=== PATIENT | male | born 1975 | race Caucasian/White ===

== ENCOUNTER 2022-01-23 10:09 | Outpatient (REF) | payer OTHER, SELFPAY ==
[2022-01-23 10:23] LABS: MANUAL DIFF FLAG NO
[2022-01-23 11:32] LABS: Basophils Percent Auto 0.4 % (0-2); Eosinophils Absolute Auto 0.2 X10*3/uL (0.0-0.4); Eosinophils Percent Auto 2.1 % (0-4); Hemoglobin 16.8 g/dl (14.0-18.0); Imm Gran Abs Auto 0.04 X10*3/uL (0.00-0.03); Imm Gran Pct Auto 0.4 % (0.0-0.4); Lymphocytes Absolute Auto 3.1 X10*3/uL (1.2-4.9); Lymphocytes Percent Auto 32.5 % (20-40); Mean Corpuscular HGB Conc 33.6 g/dl (31.0-36.0); Mean Corpuscular Hemoglobin 29.9 pg (27.0-33.0); Mean Platelet Volume 9.8 fL (9.4-12.4); Monocytes Absolute Auto 0.7 X10*3/uL (0.1-1.2); Neutrophils Absolute Auto 5.5 x10*3/uL (2.0-8.3); Neutrophils Percent Auto 57.6 % (45-73); Platelet Count 311 X10*3/uL (160-400); Red Blood Count 5.62 X10*6/uL (4.60-5.80); Red Cell Distribution Width 12.6 % (11.0-16.0); White Blood Count 9.6 X10*3/uL (4.8-10.8)
[2022-01-23 11:41] LABS: Estimated Average Glucose 114 mg/dL; Hemoglobin A1c % 5.6 %
[2022-01-23 11:57] LABS: Cholesterol 181 mg/dL; Glucose Fasting 99 mg/dL (60-99); HDL Cholesterol 41 mg/dL; LDL Cholesterol Calculated 123 mg/dl; Triglycerides 89 mg/dL
== END 2022-01-23 10:10 | disposition home or self-care (01) ==
LOC: HO.LAB 10:09
PROVIDERS: Visit Provider Family Medicine
DX: G47.33 Obstructive sleep apnea (adult) (pediatric) (principal); E78.00 Pure hypercholesterolemia, unspecified
CPT/HCPCS: 36415; 80061; 82947; 83036; 85025

== ENCOUNTER 2022-08-21 13:09 | Outpatient (REF) | payer OTHER, SELFPAY ==
[2022-08-21 15:19] LABS: MANUAL DIFF FLAG NO
[2022-08-21 15:24] LABS: Basophils Percent Auto 0.4 % (0-2); Eosinophils Absolute Auto 0.2 X10*3/uL (0.0-0.4); Eosinophils Percent Auto 2.2 % (0-4); Hematocrit 45.9 % (42.0-52.0); Hemoglobin 15.7 g/dl (14.0-18.0); Imm Gran Abs Auto 0.04 X10*3/uL (0.00-0.03); Imm Gran Pct Auto 0.5 % (0.0-0.4); Lymphocytes Absolute Auto 2.7 X10*3/uL (1.2-4.9); Lymphocytes Percent Auto 33.5 % (20-40); Mean Corpuscular HGB Conc 34.2 g/dl (31.0-36.0); Mean Corpuscular Hemoglobin 30.5 pg (27.0-33.0); Mean Corpuscular Volume 89.1 fL (80.0-98.0); Mean Platelet Volume 10.2 fL (9.4-12.4); Monocytes Absolute Auto 0.5 X10*3/uL (0.1-1.2); Monocytes Percent Auto 6.1 % (2-11); Neutrophils Absolute Auto 4.7 x10*3/uL (2.0-8.3); Neutrophils Percent Auto 57.3 % (45-73); Platelet Count 270 X10*3/uL (160-400); Red Blood Count 5.15 X10*6/uL (4.60-5.80); Red Cell Distribution Width 12.6 % (11.0-16.0); White Blood Count 8.2 X10*3/uL (4.8-10.8)
[2022-08-21 15:34] LABS: Anion Gap 15 (12-20); Blood Urea Nitrogen 15 mg/dL (9-16); Carbon Dioxide 24 mmol/L (22-29); Chloride 107 mmol/L (96-108); Estimated Glomerular Filt Rate > 60; Potassium 4.4 mmol/L (3.3-5.1); Sodium 142 mmol/L (135-145)
== END 2022-08-21 13:10 | disposition home or self-care (01) ==
LOC: HO.HMGCLDS 13:09
PROVIDERS: PCP Family Medicine; Visit Provider Family Medicine
DX: I10 Essential (primary) hypertension (principal); D45 Polycythemia vera
CPT/HCPCS: 36415; 80051; 82565; 84520; 85025

== ENCOUNTER 2022-11-05 14:54 | Outpatient (AMB) | payer OTHER, SELFPAY ==
--- NOTE | 2022-11-05 14:56 | MHC.OFFVIS ---
Intake Vital Signs 11/05/22 14:58 Height 6 ft 2 in Weight 337 lb BMI 43.3 BP 116/82 Blood Pressure Location Rt brachial Position Sitting Pulse 71 Pulse Source Pulse Oximeter Pulse Oximetry (%) 96 Intake Visit Reasons: NPV- EMILY Intake Note: Patient presents for evaluation for EMILY Allergies No Known Allergies Allergy (Verified 11/05/22 15:01) Medication List - Last Reconciled 11/05/22 by Rodrick Barnhart CNP bupropion HCl 150 mg PO QAM lisinopril 10 mg PO DAILY metoprolol succinate ER 50 mg PO DAILY HPI HPI Comments History of Present Illness Details 47 y/o male patient with hx of sleep apnea and HTN presents for new in-person visit to manage sleep apnea. Pt reports that he was diagnosed with EMILY about 20 years ago. He tried CPAP couple of months but he could not sleep with the mask. Pt states that he gained more than 50 lb since the last sleep study. His girl friend witnessed apnea spells more lately. He reports snoring, non refreshing sleep and daytime sleepiness. Pt is in wt management program now. Sleep questionnaire: Have you ever been diagnosed with a sleep disorder? Yes, EMILY about 20 years ago. Have you ever had a sleep study in the past? Yes. Have you ever been treated for a sleep disorder? Yes, CPAP for couple of months. Do you take medications for a sleep disorder? No. Do you snore? Yes. Do you wake up gasping at night? Yes. Do you have episodes of apneas? Yes. If yes, are they witnessed? Yes, by his girlfriend. Do you have episodes of nocturnal chest pain or dyspnea? Yes. Do you have difficulty initiating sleep? No. Do you have difficulty maintaining sleep? Yes. Do you wake up tired? Yes. Do you have headaches upon awakening? No, but having headache during the day. Do you wake up with dry mouth or throat? Yes. Do you have GERD? No. Do you have nocturia? Yes. Do you have nocturnal leg cramps? Yes, sometimes. Do you have symptoms of restless legs? Yes. Do you act out your dreams? No. Sleep hygiene questionnaire: What is your usual sleep routine? Usual bedtime is at 11 pm to 12 am; Usual wake up time is at 6:30 am. Do you take naps? No. Is your sleep environment cool, dark, and quiet? Yes. Do you exercise? No. Do you take caffeine or other stimulants? Large cup of coffee in the morning. Do you use electronics in bed? Yes. What is your work schedule? 9 am to 5 pm. Hypersomnolence questionnaire: Do you have daytime tiredness or fatigue? Yes. Do you easily fall asleep when inactive? Yes. Have you ever had episodes of sudden weakness? No. Have you ever had episodes of sudden weakness associated with strong emotions? No. PFSH Family History (Updated 11/05/22 @ 15:04 by YAS Garay) Father HTN (hypertension) Obesity Mother Breast cancer Brother Fatty liver Social History (Updated 11/05/22 @ 15:04 by YAS Garay) Alcohol intake: current Patient Tobacco Use Status: Never used Tobacco Questionnaire Tow[place] Sleepiness Scale Questions Sitting and reading: slight chance of dozing Watching TV: moderate chance of dozing Sitting inactive in a theater, movie etc.: slight chance of dozing As a passenger in a car for an hour without break: slight chance of dozing Lying down in the afternoon when circumstances permit: high chance of dozing Sitting and talking to someone: would never doze Sitting quietly after lunch without alcohol: moderate chance of dozing In a car, while stopped for a few minutes in the traffic: would never doze ESS < 10: normal, ESS > 12: pathologic: 10 Review of Systems ENT Reports Normal hearing present Neuro Reports Normal hearing present Physical Exam Vital Signs: Last Vital Signs Pulse 71 11/05/22 14:58 BP 116/82 11/05/22 14:58 Pulse Ox 96 11/05/22 14:58 BMI result Body Mass Index 43.3 Const General: cooperative Nutritional Appearance: obese Orientation/consciousness: patient oriented x3 HEENT Throat: Yes other (mallampati grade 3) Neck Neck: Yes full ROM and Yes supple Resp Effort & Inspection: normal respiratory effort and able to speak in complete sentences Neuro General: patient oriented x3 and gait normal Cranial nerves: Yes Bilaterally intact EOM present, Yes Normal facial strength present, Yes Midline tongue present, Yes Symmetric palate elevation present, Yes Normal hearing present, Yes Ability to bilaterally rotate head present and Yes Ability to bilaterally elevate shoulders present Cognition (Neuro): normal cognition Gait exam (Neuro): Normal gait present Psych Appearance: grossly normal Mental Status: mental status grossly normal Speech and movement: Normal speech and movement present Affect: normal affect Attitude: cooperative Assessment & Plan Assessment & Plan (1) Obesity, morbid, BMI 40.0-49.9: Code(s): E66.01 - Morbid (severe) obesity due to excess calories (2) Restless legs syndrome: Code(s): G25.81 - Restless legs syndrome (3) EMILY (obstructive sleep apnea): Code(s): G47.33 - Obstructive sleep apnea (adult) (pediatric) (4) Daytime sleepiness: Code(s): R40.0 - Somnolence (5) Snoring: Code(s): R06.83 - Snoring Plan Pt is advised to undergo in lab sleep study to assess for sleep apnea. Will f/u with pt after study to discuss results and appropriate treatment options. Sleep hygiene education provided. Wt reduction advised. Pt to call with any worsening concerns or questions. Orders: Orders RT PSG in-lab sleep study Today E66.01 - Morbid (severe) obesity due to excess calories, G25.81 - Restless legs syndrome, G47.33 - Obstructive sleep apnea (adult) (pediatric), R06.83 - Snoring, R40.0 - Somnolence Coding Level of Care Code New Pt Level 4 (46360) Diagnoses Obesity, morbid, BMI 40.0-49.9 E66.01 Restless legs syndrome G25.81 EMILY (obstructive sleep apnea) G47.33 Daytime sleepiness R40.0 Snoring R06.83
[2022-11-05 14:58] VITALS: BP 116/82; PULSE 71; O2SAT 96; BMI 43.3
== END 2022-11-05 15:32 | disposition home or self-care (01) ==
PROVIDERS: Visit Provider Nurse Practitioner Family
DX: E66.01 Morbid (severe) obesity due to excess calories (principal); G25.81 Restless legs syndrome; G47.33 Obstructive sleep apnea (adult) (pediatric); R40.0 Somnolence; R06.83 Snoring
CPT/HCPCS: 99204

== ENCOUNTER → 2022-11-05 14:54 | Outpatient (BNVA) | payer OTHER, SELFPAY | PROVIDERS: Visit Provider Nurse Practitioner Family ==

== ENCOUNTER → 2022-12-29 13:59 | Outpatient (REF) | payer OTHER, SELFPAY | LOC: HO.SL 13:59 | PROVIDERS: PCP Family Medicine; Visit Provider Nurse Practitioner Family | DX: G47.33 Obstructive sleep apnea (adult) (pediatric) (principal); R40.0 Somnolence; G25.81 Restless legs syndrome; E66.01 Morbid (severe) obesity due to excess calories | CPT/HCPCS: 95806 ==

== ENCOUNTER → 2022-12-29 14:13 | Outpatient (BNV) | payer OTHER, SELFPAY | PROVIDERS: PCP Family Medicine; Visit Provider Psychiatry & Neurology Neurology | DX: G47.33 Obstructive sleep apnea (adult) (pediatric) (principal) | CPT/HCPCS: 95806 ==

== ENCOUNTER 2023-01-21 08:52 | Day surgery (SDC) | payer OTHER, SELFPAY ==
[2023-01-21 09:51] VITALS: BP 134/57; PULSE 77; RESP 16; TEMP 36.1; O2SAT 97; BMI 41.7
--- NOTE | 2023-01-21 09:53 | HO.ANESPROP2 ---
[facility] Active Problems Active Problems: All Active Problems (Updated 01/20/23 @ 10:07 by Eva Shelton) Obesity, morbid, BMI 40.0-49.9 (Acute) Restless legs syndrome (Acute) EMILY (obstructive sleep apnea) (Acute) Daytime sleepiness (Acute) Snoring (Acute) Past Medical History Medical History Nephrolithiasis Anxiety HTN (hypertension) Family History Family History Father HTN (hypertension) Obesity Mother Breast cancer Brother Fatty liver Surgical History Surgical History History of vein stripping History of Problems with Anesthesia: No Social History Social History Alcohol intake: current Patient Tobacco Use Status: Never used Tobacco Advance Directives: No Advance Directives Information Provided: Yes Meds Allergies Allergy/AdvReac Type Severity Reaction Status Date / Time No Known Allergies Allergy Verified 11/05/22 15:01 Home Medications Medication Instructions Recorded Confirmed Last Taken Type bupropion HCl 150 mg 24 hr tablet, 150 mg PO QAM 11/05/22 11/05/22 Unknown History extended release lisinopril 10 mg tablet 10 mg PO DAILY 11/05/22 11/05/22 Unknown History metoprolol succinate 50 mg 50 mg PO DAILY 11/05/22 11/05/22 Unknown History tablet,extended release 24 hr Exam Exam Date and Time: January 21, 2023 0953 Height,Weight and Vital Signs: Height 6 ft 2 in Weight 147.418 kg Last Vital Signs Temp 97 F 01/21/23 09:51 Pulse 77 01/21/23 09:51 Resp 16 01/21/23 09:51 BP 134/57 L 01/21/23 09:51 Pulse Ox 97 01/21/23 09:51 O2 Del Method Room Air 01/21/23 09:51 Airway Mallampati Class: III (full ramos) Neck ROM: Full Loose/Missing/Broken Teeth: No Heart: RRR Lungs: CTA Assessment and Plan Assessment Anesthesia Assessment: Anesthesia Plan Discussed and Chart Reviewed Final Anesthetic Review History of Problems with Anesthesia: No NPO: Yes ASA Class: III Final Preanesthetic Review: Meds/Allgs Chart Reviewed, Consent Obtained/Reviewed and Anes Risks/Benef Reviewed Patient Risk: Intermediate Procedure Risk: Low Anesthetic Plan Anesthetic Plan: MAC: Disposition: Standard PACU
--- NOTE | 2023-01-21 11:01 | PM.OP ---
Brief Operative Note Date of Service: 01/21/23 Pre-op diagnosis: see H&P alireza foster Post-op diagnosis: same Procedure: colonsocoyp Surgeon: Forrest Jose MD Anesthesia: MAC Was an Data Analytics Developer used for this Procedure?: No Estimated blood loss (mL): 2 Pathology: other Condition: stable Disposition: PACU
[2023-01-21 11:03] VITALS: BP 127/90; PULSE 87; RESP 18; TEMP 36.6; O2SAT 96
[2023-01-21 11:18] VITALS: BP 110/72; PULSE 84; RESP 18; TEMP 36.4; O2SAT 96
--- NOTE | 2023-01-21 12:40 | OP_ITS ---
DATE OF SERVICE: 01/21/2023 SURGEON: Forrest Jose MD INDICATIONS: Colon cancer screening. PREOPERATIVE DIAGNOSIS: POSTOPERATIVE DIAGNOSIS: PROCEDURE PERFORMED: Colonoscopy to the terminal ileum with biopsy. ESTIMATED BLOOD LOSS: COMPLICATIONS: ANESTHESIA: Monitored anesthesia care. ASSISTANTS: SPECIMENS: DESCRIPTION OF PROCEDURE: A history and physical was performed. The risks and benefits of the procedure were explained to the patient. Informed consent was obtained. The patient was placed in the left lateral decubitus position. A digital rectal exam was performed and was found to be normal. The Olympus pediatric video colonoscope was introduced into the rectum and advanced to the cecum. The cecum was identified by transillumination, palpation, and identification of ileocecal valve. Examination was performed. The scope was removed. He tolerated the procedure well and was returned to the recovery area in stable condition. FINDINGS: The terminal ileum was examined and appeared normal. The visualized colonic mucosa was normal. The quality of the prep was good. A single polyp measuring less than 5 mm was identified in the cecum and removed using a biopsy forceps. No other polyps were identified. The quality of the prep was good. There was mild sigmoid diverticulosis. Retroflexed examination showed small internal hemorrhoids. IMPRESSION: Colon polyp. RECOMMENDATION: Follow up the biopsy results. MD ANH Peters/JALEESAL / [id number]
== END 2023-01-21 11:48 | disposition home or self-care (01) ==
PROVIDERS: PCP Family Medicine; Visit Provider Internal Medicine Gastroenterology
PROC: 0DJD8ZZ Inspection of Lower Intestinal Tract, Via Natural or Artificial Opening Endoscopic (ICD-10-PCS; CPT 45378; principal; 2023-01-21 10:10)
DX: Z12.11 Encounter for screening for malignant neoplasm of colon (principal); D12.0 Benign neoplasm of cecum; K57.30 Diverticulosis of large intestine without perforation or abscess without bleeding; K64.8 Other hemorrhoids; K58.8 Other irritable bowel syndrome; R15.2 Fecal urgency; N20.0 Calculus of kidney; I10 Essential (primary) hypertension; G47.33 Obstructive sleep apnea (adult) (pediatric); F41.1 Generalized anxiety disorder; Z79.899 Other long term (current) drug therapy
CPT/HCPCS: 45380; 88305

== ENCOUNTER → 2023-02-02 15:18 | Outpatient (BNVA) | payer OTHER, SELFPAY | PROVIDERS: PCP Family Medicine; Visit Provider Physician Assistant Surgical ==

== ENCOUNTER 2023-03-22 09:47 | Outpatient (REF) | payer OTHER, SELFPAY ==
--- NOTE | ~2023-03-22 | XR_ITS ---
EXAMINATION: XR SHOULDER, RIGHT CLINICAL INFORMATION: Pain right shoulder COMPARISON: None available. TECHNIQUE: Two views of the right shoulder. FINDINGS: No acute visible fracture or dislocation. Subtle ossific density along the right greater tuberosity which may reflect an element of calcific tendinosis of the supraspinatus tendon. Joint spaces and alignment are otherwise maintained. Soft tissues are unremarkable. Visualized portions of the right chest are unremarkable. XR/XR shoulder RT min 2V IMPRESSION: 1. No acute visible fracture or dislocation. 2. Subtle ossific density along the right greater tuberosity which may reflect an element of calcific tendinosis of the supraspinatus tendon.
== END 2023-03-22 09:48 | disposition home or self-care (01) ==
LOC: HO.HOSX 09:47
PROVIDERS: Visit Provider Orthopaedic Surgery
DX: M25.511 Pain in right shoulder (principal)
CPT/HCPCS: 20610; 73030; J1020

== ENCOUNTER 2023-03-22 12:55 | Outpatient (AMB) | payer OTHER, SELFPAY ==
--- NOTE | 2023-03-22 13:07 | A.OFFVIS_ITS ---
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 Right worse than the left. He describes his right shoulder pain as achy in nature. His symptoms have been getting worse over the last few months in spite of continued non operative treatments. The patient states that he has been sleeping on his right side after beginning use of a CPAP machine at night. The patient denies any weakness. He has tried Tylenol and anti-inflammatory medicines which gave him minimal relief. Allergies No Known Allergies Allergy (Verified 03/22/23 13:10) Medication List - Last Reconciled 03/22/23 by Greg Junior MD bupropion HCl 150 mg PO QAM lisinopril 10 mg PO DAILY metoprolol succinate ER 50 mg PO DAILY [facility] Medical History Nephrolithiasis Anxiety HTN (hypertension) Surgical History History of vein stripping Family History Father HTN (hypertension) Obesity Mother Breast cancer Brother Fatty liver Social History (Updated 03/22/23 @ 13:10 by Alysha Brody CMA) Alcohol intake: current Patient Tobacco Use Status: Never used Tobacco Current occupational status: employed 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 Physical Exam Vital Signs: BMI result Body Mass Index 43.6 Const Other: Well-nourished well-developed very friendly male awake alert and oriented x3 in no acute distress Extrem Other: Bilateral upper extremity examination shows good capillary refill, no skin lesions noted, normal sensation light touch Right shoulder examination shows slightly decreased range of motion when compared to his left shoulder, 4+ out of 5 strength with supraspinatus testing, positive impingement signs, tenderness over his acromioclavicular joint, no instability Office Procedures Joint Injection/Drain Joint Injection/Drain Primary Site: right shoulder Prep: site was prepped using aseptic technique Injected: 40 mg of, DepoMedrol and 1% plain lidocaine Procedure: The patient tolerated the procedure well Coding - Large joint Procedure code (CPT) selection complete Results Reviewed Results Reviewed: X-rays of the patient's right shoulder taken today show severe acromioclavicular joint narrowing, a type 2 acromion, no acute bony abnormalities Assessment & Plan Assessment & Plan (1) Right shoulder pain: Code(s): M25.511 - Pain in right shoulder Plan Mr. Mesa presents with progressively worsening right shoulder pain due to impingement syndrome and acromioclavicular joint arthritis. I had a lengthy discussion with the patient regarding the treatment options. He wishes to hold off on surgery for as long as possible. I agree with this plan. The risks and benefits of a right shoulder cortisone injection were discussed at length with the patient. The patient wished to proceed. He tolerated the injection well. He will continue with his range of motion exercises to prevent stiffness. He will contact me prior to his follow-up appointment in 3 months should his symptoms worsen in any way. Feel free to call me at any time should questions regarding his orthopedic management arise. Thank you very much for asking me to see this very friendly gentleman. I spent 22 minutes in reviewing the patient's records and imaging studies, seeing the patient and documenting in the medical record. Orders: Orders XR shoulder RT min 2V Today M25.511 - Pain in right shoulder AMB Joint Injection/Aspiration Today M25.511 - Pain in right shoulder Coding Level of Care Code New Pt Level 2 (70935) Diagnoses Right shoulder pain M25.511 CPT Codes Coding - 41873 Large joint: 72648 - Large joint ([id number])
[2023-03-22 13:09] VITALS: BMI 43.6
== END 2023-03-22 13:41 | disposition home or self-care (01) ==
PROVIDERS: PCP Family Medicine; Visit Provider Orthopaedic Surgery
DX: M25.511 Pain in right shoulder (principal)
CPT/HCPCS: 20610; 99204

== ENCOUNTER 2023-03-22 13:44 | Outpatient (REF) | payer OTHER, SELFPAY ==
[2023-03-22 15:10] LABS: INTERNATIONAL NORM RATIO 0.9 (0.9-1.1); Prothrombin Time 11.3 SEC (11.1-13.3)
[2023-03-22 15:12] LABS: Partial Thromboplastin Time 34.1 SEC (26.0-36.4)
[2023-03-27 12:33] LABS: Von Willebrand Factor Antigen 125 % (50-217)
[2023-03-29 10:53] LABS: Factor VIII Activity 102 % normal (50-180)
== END 2023-03-22 13:45 | disposition home or self-care (01) ==
LOC: HO.LAB 13:44
PROVIDERS: PCP Family Medicine; Visit Provider Family Medicine
DX: D69.2 Other nonthrombocytopenic purpura (principal); Z84.89 Family history of other specified conditions
CPT/HCPCS: 36415; 83520; 85240; 85246; 85610; 85730

== ENCOUNTER 2023-04-25 09:33 | Outpatient (AMB) | payer OTHER, SELFPAY ==
--- NOTE | 2023-04-25 09:42 | A.OFFVIS_ITS ---
Intake Vital Signs 04/25/23 09:44 Height 6 ft 2 in Weight 340 lb BMI 43.6 BP 110/72 Blood Pressure Location Rt brachial Position Sitting Intake Visit Reasons: 4MONTH F/U EMILY - Conf Intake Note: Patient presents for 4 month follow up. Allergies No Known Allergies Allergy (Verified 04/25/23 13:01) HPI HPI Comments History of Present Illness Details 48 y/o male patient presents for follow up of sleep study. The home sleep study result was significant for a mild to moderate degree of sleep apnea. The AHI was 15/hr and oxygen jayde was 85%. Pt started APAP [id number]. The CPAP compliance and therapy response (01/25/23-04/24/23) reviewed. The usage days 88% and the average usage hours 5 hrs 30 min. The max pressure was 13.8 and the residual AHI was 4.3/hr. Pt reports he is having less snoring, rested and refreshing sleep with CPAP. However, his full face mask is leaking in the middle of night and it wakes him up. He plans to visit [facility] to change mask. He is also followed by managment. 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 Review of Systems Const All systems reviewed & are unremarkable except as noted in HPI and below ENT Reports Normal hearing present Neuro Reports Normal hearing present Physical Exam Vital Signs: Last Vital Signs BP 110/72 04/25/23 09:44 BMI result Body Mass Index 43.6 Const General: cooperative Nutritional Appearance: obese Orientation/consciousness: patient oriented x3 HEENT Throat: Yes other (mallampati grade 3) Neck Neck: Yes full ROM and Yes supple Resp Effort & Inspection: normal respiratory effort and able to speak in complete sentences Neuro General: patient oriented x3 and gait normal Cranial nerves: Yes Bilaterally intact EOM present, Yes Normal facial strength present, Yes Midline tongue present, Yes Symmetric palate elevation present, Yes Normal hearing present, Yes Ability to bilaterally rotate head present and Yes Ability to bilaterally elevate shoulders present Cognition (Neuro): normal cognition Gait exam (Neuro): Normal gait present Psych Appearance: grossly normal Mental Status: mental status grossly normal Speech and movement: Normal speech and movement present Affect: normal affect Attitude: cooperative Assessment & Plan Assessment & Plan (1) EMILY (obstructive sleep apnea): Comment: Mild to moderate degree of sleep apnea. The AHI was 15/hr and oxygen jayde was 85%. Code(s): G47.33 - Obstructive sleep apnea (adult) (pediatric) Plan Continue to use APAP at [id number] as patient experiences good clinical effects, less snoring and rested sleep, daytime tiredness has improved. Wt reduction advised. Coding Level of Care Code Est Pt Level 3 (93278) Diagnoses EMILY (obstructive sleep apnea) G47.33
[2023-04-25 09:44] VITALS: BP 110/72; BMI 43.6
== END 2023-04-25 09:58 | disposition home or self-care (01) ==
PROVIDERS: PCP Family Medicine; Visit Provider Nurse Practitioner Family
DX: G47.33 Obstructive sleep apnea (adult) (pediatric) (principal)
CPT/HCPCS: 99213

== ENCOUNTER → 2023-04-25 09:33 | Outpatient (BNVA) | payer OTHER, SELFPAY | PROVIDERS: PCP Family Medicine; Visit Provider Nurse Practitioner Family | DX: R06.83 Snoring (principal); R40.0 Somnolence; G47.33 Obstructive sleep apnea (adult) (pediatric); G25.81 Restless legs syndrome; E66.01 Morbid (severe) obesity due to excess calories ==

== ENCOUNTER 2023-04-25 12:38 | Outpatient (AMB) | payer OTHER, SELFPAY ==
--- NOTE | 2023-04-25 12:49 | MHC.OFFVISWM ---
Intake VS Expanded 04/25/23 13:02 BP 128/72 Blood Pressure Location Rt brachial Blood Pressure Position Sitting Pulse 79 Pulse Source Pulse Oximeter Temp 96.0 F L Temperature Source Tympanic Pulse Oximetry 92 Oxygen Delivery Method Room Air Height 6 ft 2.5 in Weight 320 lb 12.8 oz BMI 40.6 Body Fat % 37.2 Body Fat Mass 141.6 Fat Free Mass 201.6 Visceral Fat Rating 22.0 Body Water % 44.1 Body Water Mass 141.6 Muscle Mass/Score 191.8 Basal Metabolic Rate/Score 2,841 Neck Circumference 18.5 in Waist Circumference 4 ft Intake Visit Reasons: (OV) [employer] MWL BMI Allergies No Known Allergies Allergy (Verified 04/25/23 13:01) HPI HPI Comments History of Present Illness Details This is a 48 year old man who is here to start MWL program. His goal is to loose weight and eat more healthfully. He reports first being concerned about his weight all his life - since childhood. He has tried multiple methods of weight loss including NOOM - no without permanent results. He lives alone, has girlfriend and going trhough divorce previously.. He works 5 days per week 9- 5 pm. He wakes at: 7:15 am, bed at 11:30 pm Breakfast: 8:30 am - coffee 20 oz's either cream or milk. Skips breakfast each day Lunch: 12; 30 - to never if working. grilled chicken and rice with tikka masala or peanut sauce. Water or seltzer Dinner: home at 5:30- dinner at 7pm - 2 4 oz hamburgers with rolls and air fried potatoes. Vegetables daily x 1 month. Diet Iced tea/lemonade. Restaurant food once per week. PIzza. After dinner: sweet or salty. - normally 1 snack sometimes multiple Other snacks: none during the day Liquids: once per month soda, no fruitjuice or sweetened juice Alcohol intake: none, 1 beer once per week, tobacco: none, marijuana: none Exercise: none since 2021.no membership. Has treadmill and free weights. 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 He will be gvien access to HFL classes and watch all before appt with Danny. 1. Adequate sleep of 7-8 hours per night discussed, 6 hour with CPAP 2. Healthy meal plan - stop skipping meals All meals/MR's need to take 20 minutes to complete 8am - protein shake with 16 oz coffee 12 pm - protein shake RTD - while working 4 pm- bar or yogurt 7 pm- dinner of 12 forks lean protein, 12 forks vegetable, 1 serving fruit Exercise - Cardio 4 d week = treadmill at speed 2.5, incline 1-4 - to burn 350 calories Pt will purchase body composition analyzer (recommended list given to patient) and weight himself weekly. Next appt with Carrol in 4 weeks, me 4 weeks later. Text me with any questions and weekly weights. Patient is morbidly obese and is not considered stable at this time.?I spent a total of 60 minutes reviewing/updating records, examining the patient and counseling the patient on weight management as detailed above. Coding Level of Care Code New Pt Level 5 (79168) Diagnoses Obesity, morbid, BMI 40.0-49.9 E66.01
[2023-04-25 13:02] VITALS: BP 128/72; PULSE 79; TEMP 35.6; O2SAT 92; BMI 40.6
== END 2023-04-25 14:00 | disposition home or self-care (01) ==
PROVIDERS: PCP Family Medicine; Visit Provider Physician Assistant
DX: E66.01 Morbid (severe) obesity due to excess calories (principal); Z68.41 Body mass index [BMI] 40.0-44.9, adult
CPT/HCPCS: 99205

== ENCOUNTER 2023-06-07 14:43 | Outpatient (AMB) | payer OTHER, SELFPAY ==
--- NOTE | 2023-06-07 15:14 | MHC.AMNUTRGE ---
Intake VS Expanded 06/07/23 15:54 Height 6 ft 2.5 in Weight 300 lb BMI 38.0 Body Fat % 38.2 Body Fat Mass 114.6 Fat Free Mass 185 Visceral Fat Rating 11 Body Water % 44 Body Water Mass 131.8 Muscle Mass/Score 176 Basal Metabolic Rate/Score 2,591 Intake Visit Reasons: (OV) Initial Nutrition MWL Allergies No Known Allergies Allergy (Verified 04/25/23 13:01) HPI Nutrition Presentation Details medical weight loss - start date 04/25/2023 Analyzed tanita - question accuracy of results appears to have lost 20# , 27# fat and 15#muscle and visceral rating from 22 to 11. Reason for consult elevated BMI Diet Assmnt Details Is currently ahving Breakfast: less than 1 scoop Equate powder in 6-8oz skim mil lunch 10g premade protein shake snack fitcrunch bar dinner 4oz protein, veg notices some muscle mass loss , feels weaker, reports some cravings and some savory high protein food options. Exercise: following [place] treadmill plan vitamins: B12, C, magnesium, tumeric, B - complex Dietary counseling reduction Diagnosis Nutrition problem #1 overweight/obesity As related to (etiology) #1 excess energy intake and physical inactivity As evidenced by (sign/symptom) #1 high BMI Monitoring/Goals Nutrition problem monitoring total energy intake, level of knowledge/skill, total PRO intake, total CHO intake and weight Outcome progress progressing Learning/Education Readiness to learn excellent Stages of change action Educational materials provided Yes Most Recent Diabetes Results: Creatinine 0.97 mg/dL (0.5-1.4) 08/21/22 Blood Urea Nitrogen 15 mg/dL (9-16) 08/21/22 Sodium 142 mmol/L (135-145) 08/21/22 Potassium 4.4 mmol/L (3.3-5.1) 08/21/22 Chloride 107 mmol/L (96-108) 08/21/22 Carbon Dioxide 24 mmol/L (22-29) 08/21/22 [facility] Medical History Nephrolithiasis Anxiety HTN (hypertension) Surgical History History of vein stripping Family History Father HTN (hypertension) Obesity Mother Breast cancer Brother Fatty liver Social History Alcohol intake: current Patient Tobacco Use Status: Never used Tobacco Current occupational status: employed 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 have a full scoop powder in shake, continue with Skim milk. pt receptive to all recs. Seeing Baylee as prpeviously scheduled. August f/u with me until end of MWL program. Coding Level of Care Code Nutr Indiv Intake (68752) Diagnoses Obesity (BMI 30-39.9) E66.9 Time Spent (min) 45
[2023-06-07 15:54] VITALS: BMI 38.0
== END 2023-06-07 15:57 | disposition home or self-care (01) ==
PROVIDERS: PCP Family Medicine; Visit Provider Dietitian, Registered
DX: E66.9 Obesity, unspecified (principal)

== ENCOUNTER → 2023-06-07 14:43 | Outpatient (BNVA) | payer OTHER, SELFPAY | PROVIDERS: PCP Family Medicine; Visit Provider Dietitian, Registered | DX: E66.9 Obesity, unspecified (principal); Z68.38 Body mass index [BMI] 38.0-38.9, adult; Z71.3 Dietary counseling and surveillance | CPT/HCPCS: 97802 ==

== ENCOUNTER 2023-06-23 14:42 | Outpatient (AMB) | payer OTHER, SELFPAY ==
--- NOTE | 2023-06-23 14:46 | A.OFFVIS_ITS ---
Intake VS Expanded 06/23/23 15:01 BP 116/73 Blood Pressure Location Rt brachial Blood Pressure Position Sitting Pulse 71 Pulse Source Pulse Oximeter Temp 96.3 F L Temperature Source Tympanic Pulse Oximetry 96 Oxygen Delivery Method Room Air Height 6 ft 2.5 in Weight 295 lb 9.6 oz BMI 37.4 Body Fat % 33.7 Body Fat Mass 99.6 Fat Free Mass 195.8 Visceral Fat Rating 19.0 Body Water % 46.7 Body Water Mass 138.0 Muscle Mass/Score 186.2 Basal Metabolic Rate/Score 2,722 Intake Visit Reasons: (OV) F/U MWL Allergies No Known Allergies Allergy (Verified 06/23/23 15:00) Medication List - Last Reconciled 06/23/23 by Baylee Jones PA-C bupropion HCl 150 mg PO QAM lisinopril 10 mg PO DAILY metoprolol succinate ER 50 mg PO DAILY HPI HPI Comments History of Present Illness Details 48 yo man here for MWL follow up. 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 He saw [facility] last month and completed all classes. TBWL is 25 lbs or 7.8%. Meal plan: 9am - 30 gram shake mixed with 1% milk = 38 grams 12:30 - 10 gram shake with yogurt or bar 4:30 - bar 7 pm- can of tuna or chicken with lettuc e and vinagrette. Exercise - treadmill 2d/week - not time for 4d. 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 treadmill - speed 3.0, incline 2-7 (3 minutes) - 400 calories - 2,000 week Meal plan - make sure to get 2 - 30 gram shakes per day, 1 meal with ~6 oz proiten and variety of vegetables and then a bar or yogurt. Can have cottage cheese and fresh or frozen fruit for a desert. Next appt 1 month with PA. Patient is obese and is not considered stable at this time. I spent 30 minutes in total with patient reviewing/updating records, examining the patient and counseling the patient on weight management as detailed above. Coding Level of Care Code Est Pt Level 4 (66990) Diagnoses Obesity, morbid, BMI 40.0-49.9 E66.01
[2023-06-23 15:01] VITALS: BP 116/73; PULSE 71; TEMP 35.7; O2SAT 96; BMI 37.4
== END 2023-06-23 15:28 | disposition home or self-care (01) ==
PROVIDERS: PCP Family Medicine; Visit Provider Physician Assistant
DX: E66.01 Morbid (severe) obesity due to excess calories (principal); Z68.37 Body mass index [BMI] 37.0-37.9, adult
CPT/HCPCS: 99214

== ENCOUNTER → 2023-06-23 14:42 | Outpatient (BNVA) | payer OTHER, SELFPAY | PROVIDERS: PCP Family Medicine; Visit Provider Physician Assistant ==

== ENCOUNTER 2023-06-29 14:28 | Outpatient (REF) | payer OTHER, SELFPAY ==
[2023-06-29 15:36] LABS: Anion Gap 13 (12-20); Blood Urea Nitrogen 19 mg/dL (9-16); Carbon Dioxide 28 mmol/L (22-29); Chloride 104 mmol/L (96-108); Potassium 4.5 mmol/L (3.3-5.1); Sodium 140 mmol/L (135-145)
[2023-06-30 08:41] LABS: Estimated Glomerular Filt Rate > 60
== END 2023-06-29 14:29 | disposition home or self-care (01) ==
LOC: HO.LAB 14:28
PROVIDERS: PCP Family Medicine; Visit Provider Family Medicine
DX: I10 Essential (primary) hypertension (principal)
CPT/HCPCS: 36415; 80051; 82565; 84520; 86140

== ENCOUNTER 2023-11-21 07:01 | Outpatient (REF) | payer OTHER, SELFPAY ==
--- NOTE | ~2023-11-21 | XR_ITS ---
EXAMINATION: XR SHOULDER, LEFT CLINICAL INFORMATION: Pain in the left shoulder COMPARISON: None available. TECHNIQUE: AP external rotation, Grashey, scapular Y, and axillary views of the left shoulder. FINDINGS: There is lobulated calcification in the subacromial space the region of the supraspinous tendon compatible with calcium deposition. The remaining bones joints and soft tissues are normal. XR/XR shoulder LT min 2V IMPRESSION: Calcific tendinosis/calcific tendinitis of the rotator cuff. Electronically signed by: Nathanael Yun MD 12/19/2023 01:02 PM EDT RP
== END 2023-11-21 07:02 | disposition home or self-care (01) ==
LOC: HO.HOSX 07:01
PROVIDERS: Visit Provider Orthopaedic Surgery
DX: M25.512 Pain in left shoulder (principal)
CPT/HCPCS: 20610; 73030; J1010

== ENCOUNTER 2023-11-21 15:07 | Outpatient (AMB) | payer OTHER, SELFPAY ==
[2023-11-21 15:22] VITALS: BMI 37.4
--- NOTE | 2023-11-21 15:22 | MHC.OFFVIS ---
Vital Signs 11/21/23 15:22 Height 6 ft 2.5 in Weight 295 lb BMI 37.4 Intake Visit Reasons: New prob- LT shoulder pain, wants INJ Intake Note: Sergio is a 48 yo male who presents today with a new problem of left shoulder pain that started approximately 8 months ago. He does not recall any specific traumatic event preceding the onset his pain. Most of the pain is along the lateral and anterior aspects of his shoulder. He denies any weakness. He has done stretching exercises which gave him minimal relief. He wishes to hold off on surgery if at all possible. 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 Physical Exam Vital Signs: BMI result Body Mass Index 37.4 Const Other: Well-nourished well-developed very friendly male awake alert and oriented x3 in no acute distress Extrem Other: Bilateral upper extremity examination shows good capillary refill, no skin lesions noted, normal sensation light touch Left shoulder examination shows slightly decreased range of motion when compared to his right shoulder, 4+ out of 5 strength with supraspinatus testing, positive impingement signs, tenderness over his acromioclavicular joint, no instability Office Procedures Joint Injection/Aspiration Joint Injection/Aspiration Primary Site: left shoulder Prep: site was prepped using aseptic technique Injected: 40 mg of, DepoMedrol and 1% plain lidocaine Approach Used: anterolateral Procedure: The patient tolerated the procedure well Coding 12706 - Large joint Procedure code (CPT) selection complete Results Reviewed Results Reviewed: X-rays of the patient's left shoulder taken today show moderate acromioclavicular joint narrowing, a type 2 acromion, a calcium deposit within the supraspinatus tendon, no acute bony abnormalities Assessment & Plan Assessment & Plan (1) Left shoulder pain: Code(s): M25.512 - Pain in left shoulder Category: Medical Plan Mr. Mesa presents with left shoulder pain due to impingement syndrome, acromioclavicular joint arthritis and calcific tendinitis. I had a lengthy discussion with the patient regarding the treatment options. The risks and benefits of a left shoulder cortisone injection were discussed at length with the patient. The patient wished to proceed. He tolerated the injection well. Will continue with his home stretching program to prevent stiffness. The do's and don'ts of lifting were discussed at length with the patient. He will follow up with me on an as-needed basis should his symptoms not plateau at an unacceptable level over the next few months. Feel free to call me at any time should questions regarding his orthopedic management arise. I spent 20 minutes in reviewing the patient's records and imaging studies, seeing the patient and documenting in the medical record. Orders: Orders XR shoulder LT min 2V Today M25.512 - Pain in left shoulder AMB Joint Injection/Aspiration Today M25.512 - Pain in left shoulder Coding Level of Care Code Est Pt Level 3 (62423) Diagnoses Left shoulder pain M25.512 CPT Codes Coding - 34870 Large joint: 32269 - Large joint ([id number])
== END 2023-11-21 15:45 | disposition home or self-care (01) ==
PROVIDERS: PCP Family Medicine; Visit Provider Orthopaedic Surgery
DX: M25.512 Pain in left shoulder (principal)
CPT/HCPCS: 20610; 99213

== ENCOUNTER 2023-11-24 16:04 | Outpatient (AMB) | payer OTHER, SELFPAY ==
--- NOTE | 2023-11-24 16:06 | MHC.OFFVISWM ---
VS Expanded 11/24/23 16:14 BP 144/86 H Blood Pressure Location Rt brachial Blood Pressure Position Sitting Pulse 57 Pulse Source Pulse Oximeter Temp 97.0 F Temperature Source Temporal Artery Scan Pulse Oximetry 96 Oxygen Delivery Method Room Air Height 6 ft 2.5 in Weight 299 lb 3.2 oz BMI 37.9 Body Fat % 34.3 Body Fat Mass 102.6 Fat Free Mass 196.6 Visceral Fat Rating 19.0 Body Water % 46.3 Body Water Mass 138.4 Muscle Mass/Score 187.2 Basal Metabolic Rate/Score 2,740 Intake Visit Reasons: (OV) F/U MWL Allergies No Known Allergies Allergy (Verified 11/21/23 15:31) HPI Comments Details: Patient is a 48-year-old male who returns to the office today. He is in the medical weight loss pathway. Initially seen on 04/25/2026 with a weight of 320.8 lb and a BMI of 40.6. Weight today is 299.2 lb with a BMI of 37.9. He has lost 21.6 lb or 6.7% total body weight loss. Meal plan: 30 gm shake in am, powder mix with 1 % milk 8 oz fit crunch bar meal replacement 10 gm protein meal pizza, chicken, Drinking 16 oz water Exercise plan: gym membership but not going. 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 Physical Exam Vital Signs: Last Vital Signs Temp 97.0 F 11/24/23 16:14 Pulse 57 11/24/23 16:14 BP 144/86 H 11/24/23 16:14 Pulse Ox 96 11/24/23 16:14 Oxygen Delivery Method Room Air 11/24/23 16:14 BMI result Body Mass Index 37.9 Const General: healthy appearing and no acute distress Resp Effort & Inspection: normal respiratory effort Auscultation: clear to auscultation bilaterally Cardio Rate: regular rate Rhythm: regular rhythm GI Auscultation: normal bowel sounds Extrem General: Yes normal to inspection Assessment & Plan Assessment & Plan (1) Obesity (BMI 30-39.9): Code(s): E66.9 - Obesity, unspecified Category: Medical Plan: Patient is given a link to the flower, the [employer]. He will follow this exactly. He has been encouraged to return to the gym with a goal of burning 300 calories per day on cardio equipment including treadmill, elliptical, stationary bike, rowing machine. He will return to the office in approximately 6 weeks. I gave him my cell phone number to text me weekly with his weight and if any questions.
[2023-11-24 16:14] VITALS: BP 144/86; PULSE 57; TEMP 36.1; O2SAT 96; BMI 37.9
== END 2023-11-24 16:35 | disposition home or self-care (01) ==
PROVIDERS: PCP Family Medicine; Visit Provider Physician Assistant Surgical
DX: E66.9 Obesity, unspecified (principal); Z68.37 Body mass index [BMI] 37.0-37.9, adult
CPT/HCPCS: 99213

== ENCOUNTER → 2023-11-24 16:04 | Outpatient (BNVA) | payer OTHER, SELFPAY | PROVIDERS: PCP Family Medicine; Visit Provider Physician Assistant Surgical ==

== ENCOUNTER 2024-01-23 14:46 | Outpatient (REF) | payer OTHER, SELFPAY ==
[2024-01-23 15:57] LABS: Anion Gap 13 (12-20); Blood Urea Nitrogen 18 mg/dL (9-16); Carbon Dioxide 27 mmol/L (22-29); Chloride 105 mmol/L (96-108); Estimated Glomerular Filt Rate > 60; Potassium 4.4 mmol/L (3.3-5.1); Sodium 141 mmol/L (135-145)
[2024-01-23 16:03] LABS: Erythrocyte Sedimentation Rate 7 MM/HR (0-15)
[2024-01-25 11:14] LABS: Anti Nuclear Antibody Screen NEGATIVE (NEGATIVE)
== END 2024-01-23 14:47 | disposition home or self-care (01) ==
LOC: HO.LAB 14:46
PROVIDERS: PCP Family Medicine; Visit Provider Family Medicine
DX: I10 Essential (primary) hypertension (principal); M25.50 Pain in unspecified joint
CPT/HCPCS: 36415; 80051; 82565; 84520; 85652; 86038

== ENCOUNTER 2024-01-23 15:46 | Outpatient (AMB) | payer OTHER, SELFPAY ==
[2024-01-23 08:50] VITALS: BMI 36.0
--- NOTE | 2024-01-23 08:50 | MHC.OFFVISWM ---
VS Expanded 01/23/24 08:50 Height 6 ft 2.5 in Weight 284 lb 2 oz BMI 36.0 Intake Visit Reasons: (TV) F/U MWL Allergies No Known Allergies Allergy (Verified 11/21/23 15:31) HPI Comments Details: Patient is a 48-year-old male who returns to the office today. He is in the medical weight loss pathway. Initially seen on 04/25/2023 with a weight of 320.8 lb and a BMI of 40.6. Weight today is 284.2 lb with a BMI of 36. He has lost 36.6 lb or 11.4% total body weight loss. Meal plan: Dimatize 25 gm shake in am, powder mix with unsweetened oat 8 oz fit crunch bar meal replacement shake rtd 10 gm protein meal chicken/veg, Drinking 16 oz water Exercise plan: gym membership treadmill or stationary bike, 2-3 days [address] outside [facility] Medical History Nephrolithiasis Anxiety HTN (hypertension) Surgical History History of vein stripping Family History Father HTN (hypertension) Obesity Mother Breast cancer Brother Fatty liver Social History (Updated 11/24/23 @ 16:10 by Kaylyn Marie CMA) Alcohol intake: former Patient Tobacco Use Status: Never used Tobacco Current occupational status: employed 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 Telehealth Telehealth Telehealth Platform: Telephone Location of provider rendering services: practice address Location of patient: address on file Patient Identification confirmed using: Name, : Yes Telehealth method: voice only Patient verbally consented to treatment: Yes Patient verbally consented to billing insurance company: Yes Patient informed of any privacy concerns related to visit: Yes Minutes spent on Phone/Video with Pt.: 15 Assessment & Plan Assessment & Plan (1) Obesity (BMI 30-39.9): Code(s): E66.9 - Obesity, unspecified Category: Medical Plan: Patient is making slow and steady progress. Recommend changing his meal plan to account for tracking his food intake by forks. Suggest 10 forks of protein and 10 of vegetables at night, decreasing to 8 as he loses more weight. Additionally, discussed the importance of increasing his frequency of going to the gym. He states that he will try to do so. He will text with any questions or concerns.
== END 2024-01-23 15:46 | disposition home or self-care (01) ==
LOC: HO.HBS 15:46
PROVIDERS: PCP Family Medicine; Visit Provider Physician Assistant Surgical
DX: E66.9 Obesity, unspecified (principal)
CPT/HCPCS: 99213

== ENCOUNTER 2024-04-24 09:15 | Outpatient (AMB) | payer OTHER, SELFPAY ==
--- OUTSIDE RECORDS SUMMARY | 2024-04-24 09:30 | XMS_ITS ---
Author Organization [facility] Address [address] [place] [phone] Care Team Providers Care It Data Architect Name Role Phone Arvind Villa MD Primary Care Provider Unavailab Forrest Causey Jr Unavailable REASON FOR VISIT pathology Encounters Encounter Location Date Provider Diagnosis [facility] [address] [place] [phone] 01/27/2023 Forrest Jose Jr PLAN OF TREATMENT No Information
--- OUTSIDE RECORDS SUMMARY | 2024-04-24 09:31 | XMS_ITS ---
Author Organization [facility] Address [address] [place] [phone] Care Team Providers Care Retail Cashier Name Role Phone Allen VERNON, Arvind Primary Care Provider UnavailForrest Hernandez Jr Unavailable ALLERGIES No Known Allergies REASON FOR VISIT Patient presents today for a COLON SCREENING MEDICATIONS Medication SIG (Take, Route, Frequency, Duration) Notes Start Date End Date Status Lisinopril 10 MG 1 tablet Oral Once a day Active buPROPion HCl ER (SR) 150 MG TAKE 1 TABLET BY MOUTH EVERY DAY IN THE MORNING Oral for 30 Active MiraLax (colon prep) 8.3 ounce ((238) grams mixed with Gatorade or Crystal Light orally begin at 5:00 p.m. the day before the procedure for 1 day 12/06/2022 Active Metoprolol Succinate ER 50 MG TAKE 1 TABLET BY MOUTH AT BEDTIME DIRECTED Oral for 30 Active SOCIAL HISTORY Tobacco Use: Social History Observation Description Date Details (start date - stop date) Never Smoker NA - NA Sex Assigned At : Social History Observation Description Sex Assigned At Unknown Tobacco Use/Smoking Question Answer Notes Patient is a nonsmoker Alcohol Screen Question Answer Notes Did you have a drink contain ing alcohol in the past year? Yes How often did you have a dri nk containing alcohol in the past year? Monthly or less (1 point) How many drinks did you have on a typical day when you were drinking in the past year? 1 or 2 drinks (0 point) How often did you have 6 or more drinks on one occasion in the past year? Never (0 point) Points 1 Interpretation Negative PROBLEMS Problem Type ICD Code Onset Dates Problem Status W/U Status Risk SNOMED Code Notes Problem Special screening for malignant neoplasms, colon (Z12.11) Active confirmed 649265022 Problem Other irritable bowel syndrome (K58.8) Active confirmed [id number] VITAL SIGNS BMI 42.62 kg/m2 12/06/2022 Blood pressure systolic 000 mm Hg 12/07/19 23 Blood pressure diastolic 00 mm Hg 023 Height 74 in 12/06/2022 Temperature 97.1 degrees Fahrenheit 12/07/19 23 Weight 332 lbs 12/06/2022 Encounters Encounter Location Date Provider Diagnosis [facility] [address] [place] [address] 12/06/2022 Forrest Jose Jr Special screening for malignant neoplasms, colon Z12.11 and Other irritable bowel syndrome K58.8 ASSESSMENTS Encounter Date Diagnosis Assessment Notes Treatment Notes Treatment Clinical Notes 12/06/2022 Special screening for malignant neoplasms, colon (ICD-10 - Z12.11) Colonoscopy material was printed 12/06/2022 Other irritable bowel syndrome (ICD-10 - K58.8) PLAN OF TREATMENT Medication Medication Name Sig Start Date Stop Date Notes MiraLax (colon prep) 8.3 oun ce ((238) grams mixed with Gatorade or Crystal Light orally begin at 5:00 p.m. the day before the procedure for 1 day 12/06/2022 Treatment Notes Assessment Notes Special screening for malignant neoplasm s, colon Colonoscopy material was printed Future Test Test Name Order Date COLONOSCOPY 12/06/2022 Next Appt Details Follow Up: prn, Reason: Progress Notes * Examination Category Sub-Category Detail Notes General Examination GENERAL APPEARANCE: in no ac lower elwha distress HEAD: normocephalic EYES: sclera non-icteric NECK/THYROID: no lymphadenopathy HEART: S1, S2 normal, no mu rmurs CHEST: normal shape and exp ansion LUNGS: clear to auscultatio n bilaterally ABDOMEN: soft, nontender, non distended, bowel sounds present, no organomegaly SKIN: anicteric EXTREMITIES: no clubbing, cyanosi s, or edema PSYCH: cognitive function i ntact ORAL CAVITY: mucosa moist
--- OUTSIDE RECORDS SUMMARY | 2024-04-24 09:31 | XMS_ITS ---
Author Organization [facility] Address [address] [place] [phone] Care Team Providers Care Admin Secretary Name Role Phone Arvind Villa MD Primary Care Provider Unavailab Forrest Causey Jr Unavailable [phone] REASON FOR VISIT screening Encounters Encounter Location Date Provider Diagnosis [facility] Outpatient [address] [place] [phone] 01/21/2023 Forrest Jose Jr Encounter for screening colonoscopy Z12.11 and Colon polyps K63.5 ASSESSMENTS Encounter Date Diagnosis Assessment Notes Treatment Notes Treatment Clinical Notes 01/21/2023 Encounter for screening colonoscopy (ICD-10 - Z12.11) 01/21/2023 Colon polyps (ICD-10 - K63.5) PLAN OF TREATMENT No Information
--- OUTSIDE RECORDS SUMMARY | 2024-04-24 09:31 | XMS_ITS | Patient Health Record ---
Author Organization [facility] Address [address] [place] [phone] Care Team Providers Care Waste Water Operator Name Role Phone Allen VERNON, Arvind Primary Care Provider Unavailab Forrest Causey Jr Unavailable ALLERGIES No Known Allergies REASON FOR REFERRAL No Information MEDICATIONS Medication SIG (Take, Route, Frequency, Duration) [...] for malignant neoplasms, colon (Z12.11) Active confirmed [id number] Problem Other irritable bowel syndrome (K58.8) Active confirmed [id number] PLAN OF TREATMENT Future Test Test Name Order Date COLONOSCOPY 12/06/2022 Insurance Providers Payer Name Payer Address Payer Phone Subscriber Number Group Number Insured Name Patient Relationship to Insured Coverage Start Date Coverage End Date [facility] [address] [facility] [place], [place] [phone] [id number] JONATHAN REHMAN Self - patient is the insured MEDICAL (GENERAL) HISTORY Medical History History ICD Code Nephrolithiasis hypertension EMILY, no CPAP Elevated BMI Anxiety Surgical History Surgery Date(Month/Year) varicose vein stripping/right leg
[2024-04-24 09:47] VITALS: BP 116/76; PULSE 61; O2SAT 94; BMI 38.8
--- NOTE | 2024-04-24 09:47 | MHC.OFFVIS ---
Vital Signs 04/24/24 09:47 Height 6 ft 2.5 in Weight 306 lb BMI 38.8 BP 116/76 Blood Pressure Location Lt brachial Position Sitting Pulse 61 Pulse Source Pulse Oximeter Pulse Oximetry (%) 94 Oxygen Delivery Method Room Air Intake Visit Reasons: 1Y follow up Production Material Handler Required: No Accompanied by: Self / Same As Patient Allergies No Known Allergies Allergy (Verified 04/24/24 09:50) HPI Comments Details: 49 y/o male patient presents for follow up of obstructive sleep apnea. Overall he feels he tolerates CPAP well. He has less snoring and sleeps better overall when using CPAP. Sometimes he wakes up and finds that he has removed his CPAP sully. Maybe sometimes this is r/t the straps irritating the back of his head, but not always. He has completed his weight managemnet program. Has gained some weight over the holiday season, but plans to address this now. [place] [address] Email: [email or web address] Compliance Report Usage 03/25/2024 - 04/23/2024 Usage days 24/30 days (80%) >= 4 hours 16 days (53%) < 4 hours 8 days (27%) Usage hours 109 hours 57 minutes Average usage (total days) 3 hours 40 minutes Average usage (days used) 4 hours 35 minutes Median usage (days used) 4 hours 36 minutes Total used hours (value since last reset - 04/23/2024) 2,142 hours [employer] 10 AutoSet Serial number [id number] Mode AutoSet Min Pressure 5 cmH2O Max Pressure 20 cmH2O EPR Fulltime EPR level 2 Response Standard Therapy Pressure - cmH2O Median: 7.0 95th percentile: 9.4 Maximum: 10.5 Leaks - L/min Median: 28.2 95th percentile: 48.2 Maximum: 61.9 Events per hour AI: 2.0 HI: 0.9 AHI: 2.9 PFSH Medical History Nephrolithiasis Anxiety HTN (hypertension) Surgical History History of vein stripping Family History Father HTN (hypertension) Obesity Mother Breast cancer Brother Fatty liver Social History Alcohol intake: former Patient Tobacco Use Status: Never used Tobacco Current occupational status: employed 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 Physical Exam Vital Signs: Last Vital Signs Pulse 61 04/24/24 09:47 BP 116/76 04/24/24 09:47 Pulse Ox 94 04/24/24 09:47 Oxygen Delivery Method Room Air 04/24/24 09:47 BMI result Body Mass Index 38.8 Const General: no acute distress Orientation/consciousness: patient oriented x3 Resp Effort & Inspection: normal respiratory effort and able to speak in complete sentences Neuro General: patient oriented x3 Psych Mental Status: mental status grossly normal Speech and movement: Clear speech present Attitude: cooperative Assessment & Plan Assessment & Plan (1) EMILY (obstructive sleep apnea): Comment: Mild degree of sleep apnea. The AHI was 15/hr and oxygen jayde was 85%. Code(s): G47.33 - Obstructive sleep apnea (adult) (pediatric) Category: Medical Plan Concur with patient's weight loss efforts, advised that if he were to have a sustained body weight loss of greater than 10% from when he had his last home sleep study (which would be approximately 34 lbs), we could reconsider repeating home sleep study to see if this reduces the severity of sleep apnea. Continue APAP 5-20 cmH2O w/ EPR 2nightly > 4 hours, as pt continues to have good clinical effect from use. Advised to try wearing a scalp protector underneath his CPAP head gear, and hopes this improves his ability to keep CPAP on longer throughout the night. Clean CPAP machine and supplies routinely. Change CPAP supplies routinely. Use distilled water in CPAP water reservoir. Pt to contact us or respiratory company with any questions or concerns. Pt to follow-up in 12 months or sooner prn. Coding Level of Care Code Est Pt Level 3 (08152) Diagnoses EMILY (obstructive sleep apnea) G47.33
== END 2024-04-24 10:24 | disposition home or self-care (01) ==
PROVIDERS: PCP Family Medicine; Visit Provider Nurse Practitioner Family
DX: G47.33 Obstructive sleep apnea (adult) (pediatric) (principal)
CPT/HCPCS: 99213

== ENCOUNTER 2024-05-01 15:12 | Outpatient (REF) | payer OTHER, SELFPAY ==
--- NOTE | ~2024-05-01 | US_ITS ---
EXAMINATION: US RETROPERITONEAL LIMITED (RENAL ONLY) CLINICAL INFORMATION: History of renal calculi.. COMPARISON: None available. TECHNIQUE: Real-time imaging of the kidneys. FINDINGS: RIGHT KIDNEY: 13.3 x 5.8 x 5.5 cm (SAG x AP x TRV). The kidney is normal in size, contour, and echogenicity. Renal cortical thickness is normal. No calculi or suspicious focal parenchymal lesions. No hydronephrosis. There is a midpole simple cyst measuring 0.8 x 0.5 x 0.6 cm. LEFT KIDNEY: 11.7 x 7.1 x 5.8 cm (SAG x AP x TRV). The kidney is normal in size, contour, and echogenicity. Renal cortical thickness is normal. No calculi or focal parenchymal lesions. No hydronephrosis. US/US renal BI IMPRESSION: 1. Simple cyst left kidney midpole measuring 0.8 cm. Otherwise normal kidneys.. Electronically signed by: Timmy Reid MD 05/02/2024 10:21 AM [facility]
--- OUTSIDE RECORDS SUMMARY | 2024-05-01 17:40 | XMS_ITS ---
Author Organization [facility] Address [address] [place] [phone] Care Team Providers Care Php Wordpress Developer Name Role Phone Allen VERNON, Arvind Primary Care Provider UnavailForrest Hernandez Jr Unavailable [phone] ALLERGIES No Known Allergies REASON FOR VISIT [...] for malignant neoplasms, colon (Z12.11) Active confirmed [id number] Problem Other irritable bowel syndrome (K58.8) Active confirmed [id number] VITAL SIGNS BMI 42.62 kg/m2 12/06/2022 Blood pressure systolic 000 mm Hg 12/07/19 23 Blood pressure diastolic 00 mm Hg 023 Height 74 in 12/06/2022 Temperature 97.1 degrees Fahrenheit 12/07/19 23 Weight 332 lbs 12/06/2022 Encounters Encounter Location Date Provider Diagnosis [facility] [address] [place] [address] 12/06/2022 Forrest Jose Jr Special screening for [...] General Examination GENERAL APPEARANCE: in no ac bhupendra distress HEAD: normocephalic EYES: sclera non-icteric NECK/THYROID: no lymphadenopathy HEART: S1, S2 normal, no mu rmurs CHEST: normal shape and exp ansion LUNGS: clear to auscultatio n bilaterally ABDOMEN: soft, nontender, non distended, bowel sounds present, no organomegaly SKIN: anicteric EXTREMITIES: no clubbing, cyanosi s, or edema PSYCH: cognitive function i ntact ORAL CAVITY: mucosa moist
--- OUTSIDE RECORDS SUMMARY | 2024-05-01 17:40 | XMS_ITS ---
Author Organization [facility] Address [address] [place] [phone] Care Team Providers Care Planning Supervisor Name Role Phone Arvind Villa MD Primary Care Provider Unavailab Forrest Causey Jr Unavailable [phone] REASON FOR VISIT pathology Encounters Encounter Location Date Provider Diagnosis [facility] [address] [place] [phone] 01/27/2023 Forrest Jose Jr PLAN OF TREATMENT No Information
--- OUTSIDE RECORDS SUMMARY | 2024-05-01 17:40 | XMS_ITS ---
Author Organization [facility] Address [address] [place] [id number] Care Team Providers Care Sales Merchandising Specialist Name Role Phone Arvind Villa MD Primary Care Provider Unavailab Forrest Causey Jr Unavailable REASON FOR VISIT screening Encounters Encounter Location Date Provider Diagnosis [facility] Outpatient [address] [place], [place] [id number] 01/21/2023 Forrest Jose Jr Encounter for screening colonoscopy Z12.11 and Colon polyps K63.5 ASSESSMENTS Encounter Date Diagnosis Assessment Notes Treatment Notes Treatment Clinical Notes 01/21/2023 Encounter for screening colonoscopy (ICD-10 - Z12.11) 01/21/2023 Colon polyps (ICD-10 - K63.5) PLAN OF TREATMENT No Information
--- OUTSIDE RECORDS SUMMARY | 2024-05-01 17:41 | XMS_ITS | Patient Health Record ---
Author Organization [facility] Address [address] [place] [id number] Care Team Providers Care Track Laminating Machine Tender Name Role Phone Allen VERNON, Arvind Primary [...] for malignant neoplasms, colon (Z12.11) Active confirmed [id number] Problem Other irritable bowel syndrome (K58.8) Active confirmed [id number] PLAN OF TREATMENT Future Test Test Name Order Date COLONOSCOPY 12/06/2022 Insurance Providers Payer Name Payer Address Payer Phone Subscriber Number Group Number Insured Name Patient Relationship to Insured Coverage Start Date Coverage End Date [facility] [address] [facility] [place], [place] [phone] [id number] JONATHAN REHMAN Self - patient is the insured MEDICAL (GENERAL) HISTORY Medical History History ICD Code Nephrolithiasis hypertension EMILY, no CPAP Elevated BMI Anxiety Surgical History Surgery Date(Month/Year) varicose vein stripping/right leg
== END 2024-05-01 15:13 | disposition home or self-care (01) ==
LOC: HO.US 15:12
PROVIDERS: PCP Family Medicine; Visit Provider Family Medicine
DX: R10.9 Unspecified abdominal pain (principal); Z87.442 Personal history of urinary calculi
CPT/HCPCS: 76775

== ENCOUNTER → 2024-05-01 15:21 | Outpatient (BNV) | payer OTHER, SELFPAY | PROVIDERS: PCP Family Medicine; Visit Provider Radiology Diagnostic Radiology | DX: N28.1 Cyst of kidney, acquired (principal) | CPT/HCPCS: 76775 ==

== ENCOUNTER 2024-05-04 07:48 | Outpatient (REF) | payer OTHER, SELFPAY ==
--- NOTE | ~2024-05-04 | US_ITS ---
EXAMINATION: US BLADDER HISTORY: URGENCY COMPARISON: There are no prior studies for comparison. FINDINGS: Sonographic examination of the urinary bladder was performed before and after voiding. Before voiding, the urinary bladder measured 14.0 x 7.5 x 9.5 cm, for an estimated volume of523 mL. After voiding, the urinary bladder measured4.4 x 1.7 x 2.9 cm, for an estimated volume of 11 mL. No intrinsic bladder abnormality is identified. Bilateral ureteral jets are identified. The prostate measures 3.0 x 3.5 x 3.5 cm. US/US bladder IMPRESSION: Post void bladder residual of 11 mm. No intrinsic bladder abnormality is seen. Electronically signed by: Franc Valentine MD 05/04/2024 08:30 AM [facility]
== END 2024-05-04 07:49 | disposition home or self-care (01) ==
LOC: HO.HMGCX 07:48
PROVIDERS: PCP Family Medicine; Visit Provider Family Medicine
DX: R10.9 Unspecified abdominal pain (principal); Z87.442 Personal history of urinary calculi
CPT/HCPCS: 76857

== ENCOUNTER → 2024-05-04 08:05 | Outpatient (BNV) | payer OTHER, SELFPAY | PROVIDERS: PCP Family Medicine; Visit Provider Radiology Diagnostic Radiology | DX: N28.1 Cyst of kidney, acquired (principal) | CPT/HCPCS: 76857 ==

== ENCOUNTER 2024-08-27 08:55 | Outpatient (REF) | payer OTHER, SELFPAY ==
--- OUTSIDE RECORDS SUMMARY | 2024-08-27 09:01 | XMS_ITS | Patient Health Record ---
Author Organization [facility] Address [address] [place] [phone] Care Team Providers Care Wastewater Treatment Supervisor Name Role Phone Allen VERNON, Arvind Primary Care Provider Unavailab Forrest Causey Jr Unavailable [phone] Allergies No Known Allergies Reason For Referral No Information Medications Medication SIG (Take, Route, Frequency, Duration) Notes [...] AT BEDTIME DIRECTED Oral for 30 Active Social History Tobacco Use: Social History Observation Description Date Details (start date - stop date) Never Smoker NA - NA Tobacco Use/Smoking Question Answer Notes Patient is [...] Never (0 point) Points 1 Interpretation Negative Problems Problem Type SNOMED Code ICD Code Onset Dates Problem Status W/U Status Risk Notes Problem [id number] Special screening for malignant neoplasms, colon (Z12.11) Active confirmed Problem [id number] Other irritable bowel syndrome (K58.8) Active confirmed Plan Of Treatment Future Test Test Name Order Date COLONOSCOPY 12/06/2022 Insurance Providers Payer Name Payer Address Payer Phone Subscriber Number Group Number Insured Name Patient Relationship to Insured Coverage Start Date Coverage End Date [facility] [address] [place] [phone] [id number] JONATHAN REHMAN Self - patient is the insured Medical (General) History Medical History History ICD Code Nephrolithiasis hypertension EMILY, no CPAP Elevated BMI Anxiety Surgical History Surgery Date(Month/Year) varicose vein stripping/right leg
[2024-08-27 12:00] LABS: Anion Gap 13 (12-20); Blood Urea Nitrogen 20 mg/dL (9-16); Carbon Dioxide 26 mmol/L (22-29); Chloride 105 mmol/L (96-108); Estimated Glomerular Filt Rate > 60; Sodium 140 mmol/L (135-145)
== END 2024-08-27 08:56 | disposition home or self-care (01) ==
LOC: HO.WFDLDS 08:55
PROVIDERS: Visit Provider Family Medicine
DX: I10 Essential (primary) hypertension (principal)
CPT/HCPCS: 36415; 80051; 82565; 84520

== ENCOUNTER 2024-12-12 10:33 | Outpatient (AMB) | payer OTHER, SELFPAY ==
--- NOTE | 2024-12-12 10:29 | MHC.PC.OV ---
Vital Signs 12/12/24 10:37 Height 6 ft 2.5 in Weight 327 lb BMI 41.4 BP 128/82 Blood Pressure Location Rt brachial Position Sitting Respiration 18 Pulse 70 Pulse Source Pulse Oximeter Temp 97 F Temp Source Temporal Artery Scan Pulse Oximetry (%) 97 Oxygen Delivery Method Room Air Intake Visit Reasons: Routine / Dr Villa Corporate Account Executive Required: No Accompanied by: Self / Same As Patient Allergies No Known Allergies Allergy (Verified 12/12/24 10:29) Tobacco use date assessed: 12/12/24 HPI HPI Comments History of Present Illness Details The patient is a 49-year-old male presenting with weight management issues and follow-up on his chronic medical conditions. The patient reports a weight increase from 300 pounds in April to 327 pounds presently, despite previously achieving significant weight loss. 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 His medical history includes obesity, essential hypertension, obstructive sleep apnea, anxiety, and depression. The patient manages hypertension with metoprolol and lisinopril. He reports occasional episodes of chest pain, typically manifesting on the right side, associated with stress and anxiety, which he does not experience during physical activities such as walking or mowing the lawn. He denies radiation of chest pain to the neck or arm and has no lightheadedness or general weakness during these episodes. The patient reports fatigue and low energy over the last month, attributing these to weight gain. He uses a CPAP machine for his sleep apnea and sees a therapist for ongoing mental health issues. He experienced a divorce finalized last year and continues to manage stress related to child support concerns. 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 - Recently , dealing with child support issues - Drives extensively across the state, impacting meal regularity - Reports low physical activity due to work schedule constraints - Alcohol intake limited to one or two beers per week - Reports using no tobacco, vaping, or marijuana [facility] Medical History (Updated 12/12/24 @ 10:54 by Haseeb Cool MD) Nephrolithiasis Anxiety HTN (hypertension) Surgical History (Updated 12/11/24 @ 15:58 by Chantale Steiner) History of colonoscopy (~01/21/23) History of vein stripping Family History Father HTN (hypertension) Obesity Mother Breast cancer Brother Fatty liver Social History Housing: House Alcohol intake: former Patient Tobacco Use Status: Never used Tobacco e-Cigarette/Vaping Use: Never Used Current occupational status: employed 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 1. Little interest or pleasure in doing things: not at all 2. Feeling down, depressed, or hopeless: not at all 3. Trouble falling or staying asleep, or sleeping too much: not at all 4. Feeling tired or having little energy: not at all 5. Poor appetite or overeating: not at all 6. Feeling bad about yourself - or that you are a failure or have let yourself or your family down: not at all 7. Trouble concentrating on things, such as reading the newspaper or watching television: not at all 8. Moving or speaking so slowly that other people could have noticed. Or the opposite - being so fidgety or restless that you have been moving around a lot more than usual: not at all 9. Thoughts that you would be better off or of hurting yourself in some way: not at all Total score: 0 Depression Screening Interpretation: Negative Depression Screening Done: Yes 47567 - PHQ-9 Billing: Yes Source: Developed by Drs. Franc Mi, Марина Cisneros, Bertrand Rich and colleagues, with an educational jone from [employer]. Thrive Questionnaire I am a: Patient What is your living situation today?: I have a steady place to live Within the past 12 months, did the food you bought not last and you didn't have the money to get more?: Never true Within the past 12 months, did you worry whether your food would run out before you got money to buy more?: Never true Do you have trouble paying for medicines?: No Do you have trouble getting transportation to medical appointments?: No Do you have trouble paying your heating and electricity bill?: No Do you have trouble taking care of your child, family member or friend?: No Do you have trouble with day-to-day activities such as bathing, preparing meals, shopping, managing finances, etc.?: No Are you currently unemployed and looking for a job?: No Are you interested in more education?: No THRIVE Score: 0 AUDIT C Alcohol Use Questionnaire (AUDIT-C) 1. How often do you have a drink containing alcohol?: 2-3 times a week 2. How many drinks containing alcohol do you have on a typical day when you are drinking?: 1 or 2 3. How often do you have six or more drinks on one occasion?: Never Total Score: 3 Score Reviewed/Action Taken: Yes WINSTON-7 AMB Questionnaire WINSTON-7 Feeling nervous, anxious, or on edge: 1 = Several days Not being able to stop or control worryin = Not at all Worrying too much about different things: 0 = Not at all Trouble relaxin = Several days Being so restless that it is hard to sit still: 0 = Not at all Becoming easily annoyed or irritable: 0 = Not at all Feeling afraid as if something awful might happen: 1 = Several days Total WINSTON-7 score (0-4 normal; 5-9 mild; 10-14 moderate; 15-21 severe): 3 Source: Developed by Drs. Franc Mi, Марина Cisneros, Bertrand Rich and colleagues, with an educational jone from [employer]. WINSTON-7 Assessment Billing WINSTON-7 Assessment Tool: WINSTON-7 Assessment 93863 Review of Systems Const Details: - Cardiovascular: Reports chest pain related to anxiety and stress; denies chest pain on activity - Respiratory: Denies shortness of breath - Gastrointestinal: Denies abdominal pain, nausea, or vomiting - Neurological: Denies weakness or lightheadedness except with rapid position changes - Psychological: Reports anxiety, low energy, and fatigue; denies severe depression - ENT: Reports occasional ear itching; denies hearing loss All systems reviewed & are unremarkable except as noted in HPI and below Physical exam (Primary Care) Vital Signs: Last Vital Signs Temp 97 F 12/12/24 10:37 Pulse 70 12/12/24 10:37 Resp 18 12/12/24 10:37 BP 128/82 12/12/24 10:37 Pulse Ox 97 12/12/24 10:37 Oxygen Delivery Method Room Air 12/12/24 10:37 BMI result Body Mass Index 41.4 Tobacco/Smoking Status: Tobacco use Status Tobacco use date assessed 12/12/24 12/12/24 10:40 Patient Tobacco Use Status Never used Tobacco 12/12/24 10:30 e-Cigarette/Vaping Use Never Used 12/12/24 10:40 Depression Screening Interpretation: Negative Const Other: General: +Alert and oriented, Well nourished, No acute distress. Eye: Pupils are equal, round and reactive to light, Intact accommodation, Extraocular movements are intact, Normal conjunctiva, Vision unchanged. HENT: Normocephalic, Atraumatic, Tympanic membranes are clear, Normal hearing, Oral mucosa is moist, No pharyngeal erythema, Ear canals patent, Occasional itching sensation in ears. Respiratory: Lungs CTA bilaterally, No wheeze, Respirations are non-labored. Cardiovascular: Regular rate, Regular rhythm, S1 auscultated, S2 auscultated, No murmur, Good pulses equal in all extremities, Normal peripheral perfusion, No edema, Occasional chest pain on the right side due to stress/anxiety. Gastrointestinal: Soft, Non-tender, Non-distended, Normal bowel sounds, No organomegaly. Musculoskeletal: Normal range of motion, Normal strength, No tenderness, No swelling, No deformity, Normal gait. Integumentary: Warm, Dry, Blanding, Intact, No skin lesions or rashes. Neurologic: Alert, Oriented, Normal sensory, Normal motor function, No focal defects, Cranial Nerves II-XII are grossly intact, Normal deep tendon reflexes. Psychiatric: Cooperative, Appropriate mood & affect, Normal judgment, Experiencing low energy and tiredness, Seeing a therapist, On bupropion for depression/anxiety. Coding Level of Care Code New Pt Level 4 (98810) Complex EM visit Add On G2211 Diagnoses EMILY (obstructive sleep apnea) G47.33 HTN (hypertension) I10 Obesity (BMI 30-39.9) E66.9 Additional Codes PHQ-9 - 91953 - PHQ-9 Billing: Yes ([id number]) WINSTON-7 Assessment Billing - WINSTON-7 Assessment Tool: WINSTON-7 Assessment 54051 ([id number]) Assessment & Plan Assessment & Plan (1) EMILY (obstructive sleep apnea): Comment: Currently on CPAP which he is adherent to & follows with the sleep clinic Code(s): G47.33 - Obstructive sleep apnea (adult) (pediatric) Category: Medical Plan: - Continued utilization of CPAP machine encouraged. - Reassured patient regarding current management efficacy (2) HTN (hypertension): Comment: - Current medication regimen of metoprolol and lisinopril maintained due to effective control. Code(s): I10 - Essential (primary) hypertension Category: Medical Plan: - Discussed importance of dietary salt reduction. - Encouraged regular blood pressure monitoring at home, with documentation of readings. (3) Obesity (BMI 30-39.9): Comment: - Discussed significant weight gain since prior visit; weight management counseling provided. - Recommended lifestyle modification focusing on regular meals, reducing intake of salty and sweet foods. - Discussed potential impact of sedentary job on weight. Code(s): E66.9 - Obesity, unspecified Category: Medical Plan 4. Anxiety and Depression - Continued use of bupropion for management. - Emphasized importance of therapy sessions and stress management techniques. 5. Chest Pain (attributable to Anxiety), non cardiac - Attributed to stress and anxiety rather than exertion. - Recommended stress reduction techniques and possible further psychological support. 6. Recent Weight Gain - Addressed as part of obesity management. - Exploring emotional and psychological factors contributing to weight changes. Orders: Orders Complete Blood Count Auto Diff Today I10 - Essential (primary) hypertension TSH reflex Free T4 Today I10 - Essential (primary) hypertension Comprehensive Met. Panel Today I10 - Essential (primary) hypertension Hemoglobin A1c Today I10 - Essential (primary) hypertension Lipid Panel Today I10 - Essential (primary) hypertension Vitamin D 25-OH Total Today I10 - Essential (primary) hypertension Patient Instructions: I discussed the patient's weight gain and stress-related chest pain, emphasizing lifestyle modifications to improve weight management and associated cardiovascular health. We reviewed the implications of his current lifestyle, including work constraints on meal regularity. I explained that his hypertension is well-managed with current medications but reinforced the importance of dietary salt reduction. Continued CPAP use was encouraged for sleep apnea, and reassurance was given regarding its effectiveness. We discussed the relationship between stress and episodic chest pain, attributing its cause to stress and anxiety rather than exertion. Recommended stress management techniques, potentially with psychological counseling support, were emphasized. Regular follow-up was planned, and the patient was encouraged to contact our office as needed. - Maintain regular meal schedule and reduce intake of salty and sweet foods. - Continue taking metoprolol, lisinopril, and bupropion as prescribed. - Monitor blood pressure regularly at home. - Use CPAP machine every night as directed. - Follow stress management and therapy recommendations. - Schedule a follow-up appointment in six months. - Contact the office if new symptoms arise or existing symptoms worsen. Present to the ED for worsening chest pain that doesn't resolve. - Ensure to have regular physical activities integrated as feasible.
[2024-12-12 10:37] VITALS: BP 128/82; PULSE 70; RESP 18; TEMP 36.1; O2SAT 97; BMI 41.4
--- OUTSIDE RECORDS SUMMARY | 2024-12-12 11:26 | XMS_ITS | Encounter Summary ---
Author Organization [facility] Address [address] [place] [address] Phone Care Team Providers Care Forestry Aide Name Role Phone Unknown, Unknown Primary Care Provider Yousuf novoa Encounter Details Date Type Department Care Team (Latest Contact Info) Description 11/09/2017 Transcribe [facility] [address] [place] [address] Lamberto Doherty MD [address] [place] [address] Chest pain, unspecified type (Primary Dx); Palpitation Social History Tobacco Use Types Packs/Day Years Used Date Smoking Tobacco: Never Assessed Sex and Gender Information Value Date Recorded Sex Assigned at Not on file Legal Sex Male 2:48 PM EDT Gender Identity Not on file Sexual Orientation Not on file documented as of this encounter Plan of Treatment Not on file documented as of this encounter Visit Diagnoses Diagnosis Chest pain, unspecified type- Primary Palpitation Palpitations documented in this encounter Care Teams Forestry Aide Relationship Specialty Start Date End Date Unknown, Unknown, PCP - General 11/09/17 documented as of this encounter Additional Source Comments The information contained in this document represents components of the legal health record. It is not the complete legal health record.[facility]
--- OUTSIDE RECORDS SUMMARY | 2024-12-12 11:26 | XMS_ITS | Patient Health Record ---
Author Organization [facility] Address [address] [place] [phone] Care Team Providers Care Analytical Chemist Name Role Phone Allen (RETIRED) Arvind VERNON Primary Care Provider Unavailable Forrest Jose Jr Unavailable [phone] Allergies No Known Allergies Reason For Referral [...] Problem Status W/U Status Risk Notes Problem [id number] Special screening for malignant neoplasms, colon (Z12.11) Active confirmed Problem 08539150 Other irritable bowel syndrome (K58.8) Active confirmed Plan Of Treatment Future Test Test Name Order Date COLONOSCOPY 12/06/2022 Insurance Providers Payer Name Payer Address Payer Phone Subscriber Number Group Number Insured Name Patient Relationship to Insured Coverage Start Date Coverage End Date [facility] [address] [place] [phone] [id number] JONATHAN REHMAN Self - patient is the insured Medical (General) History Medical History History ICD Code Nephrolithiasis hypertension EMILY, no CPAP Elevated BMI Anxiety Surgical History Surgery Date(Month/Year) varicose vein stripping/right leg
--- OUTSIDE RECORDS SUMMARY | 2024-12-12 11:26 | XMS_ITS | Clinical Summary ---
Author Organization [facility] Address [address] [place], [place] [address] Phone Care Team Providers Care Cardiovascular Radiologic Technologist Name Role Phone Unknown, Unknown Primary Care Provider Yousuf novoa Social History Tobacco Use Types Packs/Day Years Used Date Smoking Tobacco: Never Assessed Sex and Gender Information Value Date Recorded Sex Assigned at Not on file Legal Sex Male 2:48 PM EDT Gender Identity Not on file Sexual Orientation Not on file Plan of Treatment Not on file Medical Devices Not on file Insurance [address] [place], [place] [address] [place], [place] [address] [address] HMO O O O Care Teams Cardiovascular Radiologic Technologist Relationship Specialty Start Date End Date Unknown, Unknown, PCP - General 11/09/17 Additional Source Comments The information contained in this document represents components of the legal health record. It is not the complete legal health record.[facility]
== END 2024-12-12 11:16 | disposition home or self-care (01) ==
LOC: HO.HMCHD 10:34
PROVIDERS: PCP Student in an Organized Health Care Education/Training Program; Visit Provider Student in an Organized Health Care Education/Training Program
DX: G47.33 Obstructive sleep apnea (adult) (pediatric) (principal); I10 Essential (primary) hypertension; E66.9 Obesity, unspecified

== ENCOUNTER → 2024-12-12 10:33 | Outpatient (BNVA) | payer OTHER, SELFPAY | PROVIDERS: PCP Family Medicine; Visit Provider Student in an Organized Health Care Education/Training Program | DX: I10 Essential (primary) hypertension (principal); E66.9 Obesity, unspecified; Z68.41 Body mass index [BMI] 40.0-44.9, adult; G47.33 Obstructive sleep apnea (adult) (pediatric); F41.8 Other specified anxiety disorders; R07.89 Other chest pain; Z79.899 Other long term (current) drug therapy; Z13.31 Encounter for screening for depression | CPT/HCPCS: 96127 ==

== ENCOUNTER → 2025-04-04 09:53 | Outpatient (REF) | payer OTHER, SELFPAY ==
--- NOTE | 2025-04-04 09:57 | CA_ITS ---
Acquisition Time: 2025-04-04 10:11:57 Total Exercise Time: 00:05:59 Test Indications: CP Medications: METOPROLOL LISINOPRIL BUPROPION SILDENAFIL Protocol: ELIZABETH Max HR: 142 BPM 84% of Pred: 168 BPM Max BP: 140/82 mmHG Max Work Load: 7.0 METS Exercise stress test with exercise 5 mins 59 secs of Elizabeth Protocol, achieving 85% MPHR, with reports of sOB, no chest pain, with isolated PVCs, with normotensive response to exercise. Without any EKG chnages meeting criteria for ischemia. In recovrey, breathing improved and pt feeling back to baseline. Test reviewed with Dr. Solis. Referred By: Haseeb Cool Electronically Signed By: Ja De La Rosa
--- OUTSIDE RECORDS SUMMARY | 2025-04-04 12:08 | XMS_ITS | Patient Health Record ---
Author Organization [facility] Address [address] [place] [id number] Care Team Providers Care [employer] Name Role Phone Allen (RETIRED) Arvind VERNON Primary Care Provider Unavailable Forrest Jose Jr Unavailable Allergies No Known Allergies Reason For Referral No Information Medications Medication SIG (Take, Route, Frequency, Duration) Notes Start Date End Date Status Lisinopril 10 MG Tablet 1 tablet Oral Once a day Active buPROPion HCl ER (SR) 150 MG Tablet Extended Release 12 Hour TAKE 1 TABLET BY MOUTH EVERY DAY IN THE MORNING Oral; Duration: 30 Active MiraLax (colon prep) 8.3 ounce ((238) grams mixed with Gatorade or Crystal Light orally begin at 5:00 p.m. the day before the procedure; Duration: 1 day 12/06/2022 Active Metoprolol Succinate ER 50 MG Tablet Extended Release 24 Hour TAKE 1 TABLET BY MOUTH AT BEDTIME DIRECTED Oral; Duration: 30 Active Social History Tobacco Use: Social History Observation Description Date Details (start date - stop date) Never Smoker NA - NA Social History Drugs/Alcohol: Social Info Question Answer Notes Alcohol Screen Did you have a drink containing alcohol in the past year? Yes How often did you have a drink containing alcohol in the past year? Monthly or less (1 point) How many drinks did you have on a typical day when you were drinking in the past year? 1 or 2 drinks (0 point) How often did you have 6 or more drinks on one occasion in the past year? 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 Problems Problem Type SNOMED Code ICD Code Onset Dates Problem Status W/U Status Risk Notes Problem Screening for malignant neoplasm of colon (248558276) Special screening for malignant neoplasms, colon (Z12.11) Active confirmed Problem Irritable bowel syndrome (80784601) Other irritable bowel syndrome (K58.8) Active confirmed Plan Of Treatment Future Test Test Name Order Date COLONOSCOPY 12/06/2022 Insurance Providers Payer Name Payer Address Payer Phone Subscriber Number Group Number Insured Name Patient Relationship to Insured Coverage Start Date Coverage End Date [facility] [address] [place] [phone] [id number] JONATHAN REHMAN Self - patient is the insured Medical (General) History Medical History History ICD Code Nephrolithiasis hypertension EMILY, no CPAP Elevated BMI Anxiety Surgical History Surgery Date(Month/Year) varicose vein stripping/right leg
--- OUTSIDE RECORDS SUMMARY | 2025-04-04 12:08 | XMS_ITS | Clinical Summary ---
Author Organization [facility] Address [address] [place], [place] [id number] Phone Care Team Providers Care Portrait Painter Name Role Phone Unknown, Unknown Primary Care [...] Devices Not on file Insurance [place] [address] [place], [place] [address] [place], [place] [address] [place] [address] HMO O O O Care Teams Portrait Painter Relationship Specialty Start Date End Date Unknown, Unknown, PCP - General 11/09/17 Additional Source Comments The information contained in this document represents components of the legal health record. It is not the complete legal health record.[facility]
--- OUTSIDE RECORDS SUMMARY | 2025-04-04 12:08 | XMS_ITS | Encounter Summary ---
Author Organization [facility] Address [address] [place] [address] Phone Care Team Providers Care Bracer Name Role Phone Unknown, Unknown Primary Care Provider Yousuf novoa Encounter Details Date Type Department Care Team (Latest Contact Info) Description 11/09/2017 Transcribe Orders [facility] [address], [address] [place] [address] Lamberto Doherty MD [address] [place] [address] [email or web address] Chest pain, unspecified type (Primary Dx); Palpitation [...] Palpitations documented in this encounter Care Teams Bracer Relationship Specialty Start Date End Date Unknown, Unknown, PCP - General 11/09/17 documented as of this encounter Additional Source Comments The information contained in this document represents components of the legal health record. It is not the complete legal health record.[facility]
== END ==
LOC: HO.CARD 09:53
PROVIDERS: PCP Student in an Organized Health Care Education/Training Program; Visit Provider Student in an Organized Health Care Education/Training Program
DX: R07.9 Chest pain, unspecified (principal)
CPT/HCPCS: 93017

== ENCOUNTER → 2025-04-04 09:57 | Outpatient (BNV) | payer OTHER, SELFPAY | PROVIDERS: PCP Student in an Organized Health Care Education/Training Program | DX: R06.02 Shortness of breath (principal) | CPT/HCPCS: 93016; 93018 ==